=== PATIENT | female | born 1955 | race African-American/Black ===

== ENCOUNTER 2018-08-06 10:29 | Inpatient (IN) | payer MEDICAID, MEDICARE ==
[~2018-08-06] VITALS: Ht 157.5 cm; Wt 80.3 kg
[2018-08-06 10:58] LABS: GLUCOSE,POINT OF CARE 95 MG/DL (70-110)
[2018-08-06] MEDS ORDERED: METO5I IVP (11:00)
[2018-08-06] MEDS ORDERED: TORS20 PO (11:00)
[2018-08-06] MEDS ORDERED: METF-960 PO (11:00)
[2018-08-06] MEDS ORDERED: QUET25TA PO (11:00)
[2018-08-06] MEDS ORDERED: BENZ0.5T44 PO (11:00)
[2018-08-06] MEDS ORDERED: METOPROLOL TARTRATE 50 MG TABLET PO ONE (11:15)
[2018-08-06] MEDS ORDERED: LORazepam 1 MG TABLET PO ONE (11:15)
[2018-08-06 11:53] LABS: BASOPHILS % (AUTO) 0.9 % (0.0-2.0); EOSINOPHILS % (AUTO) 3.5 % (1.0-6.0); HEMATOCRIT 36.5 % (36-46); LYMPHOCYTES # (AUTO) 1.1 K/uL (1.0-4.8); LYMPHOCYTES % (AUTO) 18.2 % (22.0-44.0); MEAN CORPUSCULAR HEMOGLOBIN 27.7 pg (26.0-34.0); MEAN CORPUSCULAR HGB CONC 32.9 G/dL (31.0-37.0); MEAN CORPUSCULAR VOLUME 84 fL (80-100); MONOCYTES # (AUTO) 0.4 K/uL (0.1-1.0); MONOCYTES % (AUTO) 6.3 % (2.0-9.0); NEUTROPHILS # (AUTO) 4.2 K/uL (1.8-7.7); NEUTROPHILS % (AUTO) 71.1 % (40.0-70.0); PLATELET COUNT (AUTO) 265 K/uL (150-450); RED BLOOD CELL COUNT(AUTO) 4.34 MIL/uL (4.00-5.20); RED CELL DISTRIBUTION WIDTH 15.3 % (11.5-14.5)
[2018-08-06 12:11] LABS: ANION GAP 10 mmol/L (8-16); CALCIUM, TOTAL 9.3 mg/dL (8.8-10.5); CARBON DIOXIDE 27 mmol/L (22-29); CHLORIDE 105 mmol/L (98-107); CREATININE 1.54 mg/dL (0.60-1.30); GLOMERULAR FILTR. RATE CALC 41 mL/min (>60); GLUCOSE,RANDOM 107 mg/dL (70-110); POTASSIUM 3.6 mmol/L (3.5-5.1); SODIUM SERUM 142 mmol/L (136-145); UREA NITROGEN, BLOOD 7 mg/dL (7-18)
[2018-08-06 12:20] LABS: ALANINE AMINOTRANSFERASE 20 U/L (12-78); ALBUMIN 3.3 g/dL (3.4-5.0); ALKALINE PHOSPHATASE 98 U/L (46-116); ASPARTATE AMINOTRANSFERASE 12 U/L (15-37); BILIRUBIN,TOTAL 0.3 mg/dL (0.1-1.0); TOTAL PROTEIN, SERUM 6.9 g/dL (6.4-8.2)
[2018-08-06] MEDS ORDERED: ZOLPIDEM TARTRATE 10 MG TABLET PO PRN (12:45)
[2018-08-06] MEDS ORDERED: QUEtiapine FUMARATE 100 MG TABLET PO PRN (12:45)
[2018-08-06 13:03] LABS: AMPHET/METH SCREEN,URINE NEGATIVE (NEGATIVE); BARBITURATE SCREEN, URINE NEGATIVE (NEGATIVE); BENZODIAZEPINES SCREEN,URINE NEGATIVE (NEGATIVE); CANNABINOID SCREEN,URINE NEGATIVE (NEGATIVE); COCAINE SCREEN,URINE NEGATIVE (NEGATIVE); METHADONE SCREEN, URINE NEGATIVE (NEGATIVE); OPIATE SCREEN,URINE NEGATIVE (NEGATIVE)
[2018-08-06 13:04] LABS: PHENCYCLIDINE SCREEN,URINE NEGATIVE (NEGATIVE)
[2018-08-06 13:29] LABS: CHOL/HDL RATIO 2.5 (3.9-5.7); CHOLESTEROL 163 mg/dL (131-200); HDL CHOLESTEROL 64 mg/dL (40-60); LDL CHOL (CALC.) 82 mg/dL (0-130); TRIGLYCERIDES 83 mg/dL (15-150)
[2018-08-06 15:30] VITALS: BP 156/106
[2018-08-06] MEDS ORDERED: MAGNESIUM HYDROXIDE SUSPENSION 30 ML UDCUP PO PRN (16:00)
[2018-08-06] MEDS ORDERED: ONDANSETRON HCL 4 MG TABLET PO PRN (16:00)
[2018-08-06] MEDS ORDERED: GuaiFENesin/D-METHORPHAN [SUGAR-FREE] 200-20MG/10 ML SYRUP UDCUP PO PRN (16:00)
[2018-08-06] MEDS ORDERED: PETROLATUM,WHITE 71 GM JELLY TP PRN (16:00)
[2018-08-06] MEDS ORDERED: IBUPROFEN 400 MG TABLET PO PRN (16:00)
[2018-08-06] MEDS ORDERED: ALBUTEROL SULFATE HFA 90 MCG/PUFF 8 GM INHALER IH PRN (16:00)
[2018-08-06] MEDS ORDERED: LOPERAMIDE HCL 2 MG CAPSULE PO PRN (16:00)
[2018-08-06] MEDS ORDERED: NICOTINE 14 MG/24 HOUR PATCH TD PRN (16:00)
[2018-08-06] MEDS ORDERED: ACETAMINOPHEN 325 MG TABLET PO PRN (16:00)
[2018-08-06] MEDS ORDERED: DOCUSATE SODIUM 100 MG CAPSULE PO PRN (16:00)
[2018-08-06] MEDS ORDERED: MAG HYDROX/AL HYDROX/SIMETH ES 30 ML SUSPENSION UDCUP PO PRN (16:00)
[2018-08-06] MEDS ORDERED: CloNIDine HCL 0.1 MG TABLET PO PRN (16:00)
[2018-08-06] MEDS: MetFORMIN HCL 500 MG TABLET PO SCH (17:25)
[2018-08-06] MEDS: METOPROLOL SUCCINATE 25 MG ER TABLET PO SCH (20:21)
[2018-08-06] MEDS: LORazepam 2 MG TABLET PO PRN (20:24)
[2018-08-06 20:26] VITALS: BP 134/74
[2018-08-07 06:49] LABS: BASOPHILS % (AUTO) 1.1 % (0.0-2.0); HEMATOCRIT 35.8 % (36-46); HEMOGLOBIN 11.7 g/dL (12.0-16.0); LYMPHOCYTES # (AUTO) 1.7 K/uL (1.0-4.8); MEAN CORPUSCULAR HEMOGLOBIN 27.3 pg (26.0-34.0); MEAN CORPUSCULAR HGB CONC 32.7 G/dL (31.0-37.0); MEAN CORPUSCULAR VOLUME 84 fL (80-100); MONOCYTES # (AUTO) 0.4 K/uL (0.1-1.0); MONOCYTES % (AUTO) 7.7 % (2.0-9.0); NEUTROPHILS # (AUTO) 2.6 K/uL (1.8-7.7); NEUTROPHILS % (AUTO) 50.2 % (40.0-70.0); PLATELET COUNT (AUTO) 259 K/uL (150-450); RED BLOOD CELL COUNT(AUTO) 4.29 MIL/uL (4.00-5.20); RED CELL DISTRIBUTION WIDTH 15.1 % (11.5-14.5)
[2018-08-07] MEDS: MetFORMIN HCL 500 MG TABLET PO SCH ×2 (06:58→16:28)
[2018-08-07 07:14] LABS: HEMOGLOBIN A1C 5.9 % (4.5-6.2)
[2018-08-07 07:24] LABS: ALBUMIN 3.1 g/dL (3.4-5.0); BILIRUBIN,TOTAL 0.4 mg/dL (0.1-1.0); CALCIUM, TOTAL 8.8 mg/dL (8.8-10.5); CREATININE 1.33 mg/dL (0.60-1.30); THYROID STIMULATING HORMONE 0.92 uIU/mL (0.36-3.74); TOTAL PROTEIN, SERUM 6.1 g/dL (6.4-8.2)
[2018-08-07 08:05] VITALS: BP 145/98
[2018-08-07] MEDS: METOPROLOL SUCCINATE 25 MG ER TABLET PO SCH ×2 (09:09→16:28)
[2018-08-07] MEDS: LORazepam 2 MG TABLET PO PRN ×2 (09:10→16:31)
[2018-08-07] MEDS: TORSEMIDE 20 MG TABLET PO SCH (09:19)
[2018-08-07 19:58] VITALS: BP 117/72
[2018-08-07] MEDS: QUEtiapine FUMARATE 200 MG TABLET PO SCH (20:45)
[2018-08-07] MEDS: BENZTROPINE MESYLATE 1 MG TABLET PO SCH (20:45)
[2018-08-08] MEDS: MetFORMIN HCL 500 MG TABLET PO SCH ×2 (07:02→16:41)
[2018-08-08 08:05] VITALS: BP 131/74
[2018-08-08] MEDS: TORSEMIDE 20 MG TABLET PO SCH (08:26)
[2018-08-08] MEDS: METOPROLOL SUCCINATE 25 MG ER TABLET PO SCH ×2 (08:26→16:41)
[2018-08-08 17:34] VITALS: BP 113/88
[2018-08-08] MEDS: BENZTROPINE MESYLATE 1 MG TABLET PO SCH (20:15)
[2018-08-08] MEDS: QUEtiapine FUMARATE 200 MG TABLET PO SCH (20:15)
[2018-08-08] MEDS: LORazepam 2 MG TABLET PO PRN (20:16)
[2018-08-09] MEDS: MetFORMIN HCL 500 MG TABLET PO SCH ×2 (07:04→17:30)
[2018-08-09 08:05] VITALS: BP 146/102
[2018-08-09] MEDS: TORSEMIDE 20 MG TABLET PO SCH (09:20)
[2018-08-09] MEDS: METOPROLOL SUCCINATE 25 MG ER TABLET PO SCH ×2 (09:20→16:56)
[2018-08-09] MEDS ORDERED: METO25 PO (16:47)
[2018-08-09] MEDS: FERROUS SULFATE 325 MG EC TABLET PO SCH (17:30)
[2018-08-09] MEDS: QUEtiapine FUMARATE 200 MG TABLET PO SCH (20:03)
[2018-08-09] MEDS: BENZTROPINE MESYLATE 1 MG TABLET PO SCH (20:03)
[2018-08-09 20:09] VITALS: BP 136/84
[2018-08-10] MEDS: MetFORMIN HCL 500 MG TABLET PO SCH ×2 (07:13→16:57)
[2018-08-10] MEDS: FERROUS SULFATE 325 MG EC TABLET PO SCH ×2 (07:13→16:57)
[2018-08-10] MEDS: TORSEMIDE 20 MG TABLET PO SCH (08:50)
[2018-08-10] MEDS: ESCITALOPRAM OXALATE 10 MG TABLET PO SCH (08:51)
[2018-08-10] MEDS: METOPROLOL SUCCINATE 25 MG ER TABLET PO SCH ×2 (08:51→16:57)
[2018-08-10 09:31] VITALS: BP 113/67
[2018-08-10 17:00] VITALS: BP 154/80
[2018-08-10] MEDS: QUEtiapine FUMARATE 200 MG TABLET PO SCH (20:14)
[2018-08-10] MEDS: BENZTROPINE MESYLATE 1 MG TABLET PO SCH (20:14)
[2018-08-11 01:29] VITALS: BP 133/72
[2018-08-11] MEDS: FERROUS SULFATE 325 MG EC TABLET PO SCH ×2 (06:44→17:49)
[2018-08-11] MEDS: MetFORMIN HCL 500 MG TABLET PO SCH ×2 (06:45→17:49)
[2018-08-11] MEDS: TORSEMIDE 20 MG TABLET PO SCH (09:03)
[2018-08-11] MEDS: METOPROLOL SUCCINATE 25 MG ER TABLET PO SCH ×2 (09:03→16:46)
[2018-08-11] MEDS: ESCITALOPRAM OXALATE 10 MG TABLET PO SCH (09:04)
[2018-08-11 10:23] VITALS: BP 129/80
[2018-08-11 16:26] VITALS: BP 141/82
[2018-08-11] MEDS: BENZTROPINE MESYLATE 1 MG TABLET PO SCH (20:03)
[2018-08-11] MEDS: QUEtiapine FUMARATE 200 MG TABLET PO SCH (20:03)
[2018-08-12 05:50] VITALS: BP 146/92
[2018-08-12] MEDS: FERROUS SULFATE 325 MG EC TABLET PO SCH ×2 (07:02→17:06)
[2018-08-12] MEDS: MetFORMIN HCL 500 MG TABLET PO SCH ×2 (07:02→17:06)
[2018-08-12 08:05] VITALS: BP 120/69
[2018-08-12] MEDS: METOPROLOL SUCCINATE 25 MG ER TABLET PO SCH ×2 (08:19→17:05)
[2018-08-12] MEDS: TORSEMIDE 20 MG TABLET PO SCH (08:19)
[2018-08-12] MEDS: QUEtiapine FUMARATE 200 MG TABLET PO SCH ×2 (08:19→20:13)
[2018-08-12] MEDS: ESCITALOPRAM OXALATE 10 MG TABLET PO SCH (08:20)
[2018-08-12] MEDS ORDERED: GABAPENTIN 300 MG CAPSULE PO SCH (17:00)
[2018-08-12] MEDS ORDERED: OLANZapine 10 MG TABLET PO SCH (17:00)
[2018-08-12] MEDS: BENZTROPINE MESYLATE 1 MG TABLET PO SCH (20:12)
[2018-08-12] MEDS ORDERED: QUEtiapine FUMARATE 300 MG TABLET PO SCH (21:00)
[2018-08-12 22:13] VITALS: BP 144/74
[2018-08-13] MEDS: MetFORMIN HCL 500 MG TABLET PO SCH ×2 (06:20→17:15)
[2018-08-13] MEDS: FERROUS SULFATE 325 MG EC TABLET PO SCH ×2 (06:20→17:15)
[2018-08-13 08:05] VITALS: BP 128/67
[2018-08-13] MEDS: TORSEMIDE 20 MG TABLET PO SCH (12:07)
[2018-08-13] MEDS: QUEtiapine FUMARATE 200 MG TABLET PO SCH ×2 (12:07→20:05)
[2018-08-13] MEDS: METOPROLOL SUCCINATE 25 MG ER TABLET PO SCH ×2 (12:07→17:00)
[2018-08-13] MEDS: ESCITALOPRAM OXALATE 10 MG TABLET PO SCH (12:07)
[2018-08-13 16:09] VITALS: BP 129/89
[2018-08-13] MEDS: BENZTROPINE MESYLATE 1 MG TABLET PO SCH (20:05)
[2018-08-14] MEDS: MetFORMIN HCL 500 MG TABLET PO SCH ×2 (06:33→17:43)
[2018-08-14] MEDS: FERROUS SULFATE 325 MG EC TABLET PO SCH ×2 (06:33→17:30)
[2018-08-14 07:17] LABS: CREATININE 1.46 mg/dL (0.60-1.30); POTASSIUM 4.1 mmol/L (3.5-5.1)
[2018-08-14] MEDS: METOPROLOL SUCCINATE 25 MG ER TABLET PO SCH ×2 (08:57→09:44)
[2018-08-14] MEDS: TORSEMIDE 20 MG TABLET PO SCH (08:58)
[2018-08-14] MEDS: QUEtiapine FUMARATE 200 MG TABLET PO SCH ×2 (08:58→21:20)
[2018-08-14] MEDS: ESCITALOPRAM OXALATE 10 MG TABLET PO SCH (08:58)
[2018-08-14 10:51] VITALS: BP 166/84
[2018-08-14] MEDS: BENZTROPINE MESYLATE 1 MG TABLET PO SCH (21:20)
[2018-08-14 22:20] VITALS: BP 141/82
[2018-08-15] MEDS: FERROUS SULFATE 325 MG EC TABLET PO SCH ×2 (07:05→17:33)
[2018-08-15] MEDS: MetFORMIN HCL 500 MG TABLET PO SCH ×2 (07:05→17:34)
[2018-08-15 07:08] LABS: GLUCOMETER DEV NAME(LOC) 3E.I; GLUCOSE,POINT OF CARE 183 MG/DL (70-110)
[2018-08-15] MEDS: QUEtiapine FUMARATE 200 MG TABLET PO SCH ×2 (08:53→20:08)
[2018-08-15] MEDS: ESCITALOPRAM OXALATE 10 MG TABLET PO SCH (08:55)
[2018-08-15] MEDS: METOPROLOL SUCCINATE 25 MG ER TABLET PO SCH ×2 (08:55→17:33)
[2018-08-15] MEDS: TORSEMIDE 20 MG TABLET PO SCH (08:56)
[2018-08-15 09:00] VITALS: BP 142/85
[2018-08-15 16:39] LABS: GLUCOMETER DEV NAME(LOC) 3E.I; GLUCOSE,POINT OF CARE 93 MG/DL (70-110)
[2018-08-15 17:50] VITALS: BP 129/89
[2018-08-15] MEDS: BENZTROPINE MESYLATE 1 MG TABLET PO SCH (20:08)
[2018-08-16 05:55] LABS: GLUCOMETER DEV NAME(LOC) 3EX.; GLUCOSE,POINT OF CARE 94 MG/DL (70-110)
[2018-08-16] MEDS: FERROUS SULFATE 325 MG EC TABLET PO SCH ×3 (07:13→18:30)
[2018-08-16] MEDS: MetFORMIN HCL 500 MG TABLET PO SCH ×2 (07:13→16:48)
[2018-08-16] MEDS: QUEtiapine FUMARATE 200 MG TABLET PO SCH ×2 (08:24→20:21)
[2018-08-16] MEDS: ESCITALOPRAM OXALATE 10 MG TABLET PO SCH (08:25)
[2018-08-16] MEDS: METOPROLOL SUCCINATE 25 MG ER TABLET PO SCH ×3 (08:25→18:30)
[2018-08-16 08:30] VITALS: BP 132/73
[2018-08-16] MEDS: TORSEMIDE 20 MG TABLET PO SCH (08:43)
[2018-08-16 17:00] VITALS: BP 123/78
[2018-08-16 17:04] LABS: GLUCOMETER DEV NAME(LOC) 3E.I; GLUCOSE,POINT OF CARE 93 MG/DL (70-110)
[2018-08-16] MEDS: BENZTROPINE MESYLATE 1 MG TABLET PO SCH (20:21)
[2018-08-17 06:04] LABS: GLUCOMETER DEV NAME(LOC) 3EX.; GLUCOSE,POINT OF CARE 94 MG/DL (70-110)
[2018-08-17] MEDS: FERROUS SULFATE 325 MG EC TABLET PO SCH ×2 (06:59→16:32)
[2018-08-17] MEDS: MetFORMIN HCL 500 MG TABLET PO SCH ×2 (07:00→16:33)
[2018-08-17] MEDS: ESCITALOPRAM OXALATE 10 MG TABLET PO SCH (09:00)
[2018-08-17] MEDS: QUEtiapine FUMARATE 200 MG TABLET PO SCH ×2 (09:00→20:50)
[2018-08-17] MEDS: TORSEMIDE 20 MG TABLET PO SCH (09:00)
[2018-08-17] MEDS: METOPROLOL SUCCINATE 25 MG ER TABLET PO SCH ×2 (09:00→16:32)
[2018-08-17 10:08] VITALS: BP 154/93
[2018-08-17 16:39] LABS: GLUCOMETER DEV NAME(LOC) 3E.I; GLUCOSE,POINT OF CARE 86 MG/DL (70-110)
[2018-08-17 17:23] VITALS: BP 166/97
[2018-08-17] MEDS: BENZTROPINE MESYLATE 1 MG TABLET PO SCH (20:49)
[2018-08-18 01:40] VITALS: BP 169/102
[2018-08-18 05:39] LABS: GLUCOMETER DEV NAME(LOC) 3EX.; GLUCOSE,POINT OF CARE 84 MG/DL (70-110)
[2018-08-18] MEDS: FERROUS SULFATE 325 MG EC TABLET PO SCH ×2 (07:06→16:41)
[2018-08-18] MEDS: MetFORMIN HCL 500 MG TABLET PO SCH ×2 (07:07→16:41)
[2018-08-18] MEDS: ESCITALOPRAM OXALATE 10 MG TABLET PO SCH (08:13)
[2018-08-18] MEDS: METOPROLOL SUCCINATE 25 MG ER TABLET PO SCH ×2 (08:13→16:41)
[2018-08-18] MEDS: QUEtiapine FUMARATE 200 MG TABLET PO SCH ×2 (08:14→21:00)
[2018-08-18] MEDS: TORSEMIDE 20 MG TABLET PO SCH (08:19)
[2018-08-18 09:41] VITALS: BP 147/94
[2018-08-18 16:36] VITALS: BP 131/77
[2018-08-18] MEDS: BENZTROPINE MESYLATE 1 MG TABLET PO SCH (21:00)
[2018-08-19 05:30] LABS: GLUCOMETER DEV NAME(LOC) 3EX.; GLUCOSE,POINT OF CARE 96 MG/DL (70-110)
[2018-08-19] MEDS: FERROUS SULFATE 325 MG EC TABLET PO SCH ×2 (06:58→17:43)
[2018-08-19] MEDS: MetFORMIN HCL 500 MG TABLET PO SCH (06:58)
[2018-08-19 08:08] VITALS: BP 168/109
[2018-08-19] MEDS: ESCITALOPRAM OXALATE 10 MG TABLET PO SCH (09:00)
[2018-08-19] MEDS: QUEtiapine FUMARATE 200 MG TABLET PO SCH ×2 (09:00→20:23)
[2018-08-19] MEDS: METOPROLOL SUCCINATE 25 MG ER TABLET PO SCH ×2 (09:00→17:00)
[2018-08-19] MEDS: TORSEMIDE 20 MG TABLET PO SCH (09:00)
[2018-08-19 16:39] LABS: GLUCOMETER DEV NAME(LOC) 3E.I; GLUCOSE,POINT OF CARE 109 MG/DL (70-110)
[2018-08-19 18:12] VITALS: BP 159/93
[2018-08-19] MEDS: BENZTROPINE MESYLATE 1 MG TABLET PO SCH (20:16)
[2018-08-20 06:04] LABS: GLUCOMETER DEV NAME(LOC) 3EX.; GLUCOSE,POINT OF CARE 96 MG/DL (70-110)
[2018-08-20] MEDS: MetFORMIN HCL 500 MG TABLET PO SCH (06:56)
[2018-08-20] MEDS: FERROUS SULFATE 325 MG EC TABLET PO SCH ×2 (06:56→17:25)
[2018-08-20] MEDS: METOPROLOL SUCCINATE 25 MG ER TABLET PO SCH ×2 (09:00→17:00)
[2018-08-20] MEDS: TORSEMIDE 20 MG TABLET PO SCH (09:00)
[2018-08-20] MEDS: ESCITALOPRAM OXALATE 10 MG TABLET PO SCH (09:00)
[2018-08-20] MEDS: QUEtiapine FUMARATE 200 MG TABLET PO SCH ×2 (09:00→20:31)
[2018-08-20 10:19] VITALS: BP 146/91
[2018-08-20 10:29] VITALS: BP 133/83
[2018-08-20 19:26] VITALS: BP 137/81
[2018-08-20] MEDS: BENZTROPINE MESYLATE 1 MG TABLET PO SCH (20:30)
[2018-08-21] MEDS: FERROUS SULFATE 325 MG EC TABLET PO SCH (07:00)
[2018-08-21] MEDS: MetFORMIN HCL 500 MG TABLET PO SCH (07:00)
[2018-08-21] MEDS: ESCITALOPRAM OXALATE 10 MG TABLET PO SCH ×2 (08:27→09:00)
[2018-08-21] MEDS: TORSEMIDE 20 MG TABLET PO SCH ×2 (08:31→09:00)
[2018-08-21] MEDS: QUEtiapine FUMARATE 200 MG TABLET PO SCH ×2 (08:32→09:00)
[2018-08-21] MEDS: METOPROLOL SUCCINATE 25 MG ER TABLET PO SCH (09:00)
== END 2018-08-21 13:10 | disposition home or self-care (01) | DRG 885 ==
LOC: EMS 10:29 → 3EX 13:50
DX: F25.1 Schizoaffective disorder, depressive type (principal); N18.9 Chronic kidney disease, unspecified; I13.0 Hypertensive heart and chronic kidney disease with heart failure and stage 1 through stage 4 chronic kidney disease, or unspecified chronic kidney disease; D64.9 Anemia, unspecified; E11.22 Type 2 diabetes mellitus with diabetic chronic kidney disease; I50.9 Heart failure, unspecified; Z88.6 Allergy status to analgesic agent; Z88.8 Allergy status to other drugs, medicaments and biological substances
CPT/HCPCS: 83036; 84443; 93005; G0378; G0480

== ENCOUNTER → 2020-04-06 | Outpatient (CLI) | payer MEDICARE, OTHER ==
[~2020-04-06] MED LIST: ATEN-73 PO; BENZ0.5T44 PO; DYRE50 PO; METF-960 PO; METO25 PO; OLAN10TA3 PO; POTA20TA83 PO; QUET25TA PO; TORS20 PO
== END | disposition home or self-care (01) ==
LOC: RADPV 13:38
PROVIDERS: ATTEND Internal Medicine Geriatric Medicine
DX: E04.9 Nontoxic goiter, unspecified (principal); C73 Malignant neoplasm of thyroid gland; R59.0 Localized enlarged lymph nodes
CPT/HCPCS: 76536

== ENCOUNTER 2020-04-07 09:33 | Emergency (ER) | payer MEDICARE, MEDICAID ==
[~2020-04-07] VITALS: Ht 157.5 cm; Wt 92.7 kg
[~2020-04-07 09:33] MED LIST changes: -ATEN-73 PO; -DYRE50 PO; -OLAN10TA3 PO; -POTA20TA83 PO
[2020-04-07] MEDS ORDERED: ATEN-73 PO (09:49)
[2020-04-07] MEDS ORDERED: DYRE50 PO (09:53)
[2020-04-07] MEDS ORDERED: OLAN10TA3 PO (09:53)
[2020-04-07] MEDS ORDERED: POTA20TA83 PO (09:53)
[2020-04-07 11:01] LABS: BASOPHILS % (AUTO) 1.1 % (0.0-2.0); EOSINOPHILS % (AUTO) 4.2 % (1.0-6.0); HEMATOCRIT 41.5 % (36-46); HEMOGLOBIN 14.4 g/dL (12.0-16.0); LYMPHOCYTES # (AUTO) 1.1 K/uL (1.0-4.8); LYMPHOCYTES % (AUTO) 15.9 % (22.0-44.0); MEAN CORPUSCULAR HEMOGLOBIN 29.9 pg (26.0-34.0); MEAN CORPUSCULAR HGB CONC 34.7 G/dL (31.0-37.0); MEAN CORPUSCULAR VOLUME 86 fL (80-100); MONOCYTES # (AUTO) 0.4 K/uL (0.1-1.0); NEUTROPHILS # (AUTO) 4.9 K/uL (1.8-7.7); NEUTROPHILS % (AUTO) 72.8 % (40.0-70.0); PLATELET COUNT (AUTO) 258 K/uL (150-450); RED BLOOD CELL COUNT(AUTO) 4.82 MIL/uL (4.00-5.20); RED CELL DISTRIBUTION WIDTH 14.4 % (11.5-14.5)
[2020-04-07 11:11] LABS: CALCIUM, TOTAL 9.7 mg/dL (8.8-10.5); CREATININE 1.65 mg/dL (0.60-1.30); POTASSIUM 3.8 mmol/L (3.5-5.1)
[2020-04-07 11:18] LABS: ALBUMIN 3.8 g/dL (3.4-5.0); BILIRUBIN,TOTAL 0.3 mg/dL (0.1-1.0); TOTAL PROTEIN, SERUM 7.9 g/dL (6.4-8.2)
[2020-04-07 13:25] LABS: INFLUENZA TYPE A NEGATIVE FOR TYPE A (NEGATIVE); INFLUENZA TYPE B NEGATIVE FOR TYPE B (NEGATIVE); RAPID GROUP A STREP NEGATIVE (NEGATIVE)
[2020-04-07 14:59] LABS: APPEARANCE,URINE CLEAR (CLEAR); BILIRUBIN,URINE NEGATIVE (NEGATIVE); GLUCOSE, URINE (UA) NEGATIVE (NEGATIVE); KETONES,URINE NEGATIVE (NEGATIVE); LEUKOCYTE ESTERASE ,URINE NEGATIVE (NEGATIVE); NITRATE,URINE NEGATIVE (NEGATIVE); OCCULT BLOOD,URINE NEGATIVE (NEGATIVE); PH,URINE 7.5 (5.0-8.0); PROTEIN,URINE NEGATIVE (NEGATIVE); UROBILINOGEN,URINE 0.2 mg/dL (<=1.0)
[2020-04-07 15:08] LABS: BACTERIA,URINE None Seen /HPF (None Seen); RBC,URINE None Seen /HPF (0-2); SQUAMOUS EPITHELIAL CELL,UR Rare /LPF (None Seen); WBC,URINE None Seen /HPF (0-5)
[2020-04-07 15:45] VITALS: BP 141/79
== END 2020-04-07 16:17 | disposition home or self-care (01) ==
LOC: EMS 09:35
DX: C73 Malignant neoplasm of thyroid gland (principal); J02.9 Acute pharyngitis, unspecified; R51 Headache; R53.81 Other malaise; I10 Essential (primary) hypertension; Z20.828 Contact with and (suspected) exposure to other viral communicable diseases; Z90.710 Acquired absence of both cervix and uterus
CPT/HCPCS: 70450; 83605; 87426; 87430; 87804; 36415-L1; 36415-TC; 71045-TC

== ENCOUNTER 2020-04-11 16:36 | Emergency (ER) | payer MEDICARE, MEDICAID ==
[~2020-04-11] VITALS: Ht 157.5 cm; Wt 81.8 kg
[~2020-04-11 16:36] MED LIST changes: +ATEN-73 PO; -BENZ0.5T44 PO; +DYRE50 PO; -METF-960 PO; -METO25 PO; +OLAN10TA3 PO; +POTA20TA83 PO; -QUET25TA PO; -TORS20 PO
[2020-04-11 18:49] VITALS: BP 124/78
== END 2020-04-11 19:00 | disposition home or self-care (01) ==
LOC: EMS 16:37
DX: B34.9 Viral infection, unspecified (principal); Z20.828 Contact with and (suspected) exposure to other viral communicable diseases
CPT/HCPCS: 71045; 99284; U0003

== ENCOUNTER 2020-12-03 13:27 | Inpatient (IN) | payer MEDICARE, MEDICAID ==
[~2020-12-03] VITALS: Ht 157.5 cm; Wt 94.4 kg
[~2020-12-03 13:27] MED LIST changes: -ATEN-73 PO; +CITA-144 PO; +DOCU-275 PO; -DYRE50 PO; +FAMO20 PO; +LORA-1000 PO; +METO25 PO; -OLAN10TA3 PO; +QUET200T PO; +TRIA1TAB93 PO
[2020-12-03] MEDS ORDERED: LORazepam 2 MG TABLET PO PRN (20:15)
[2020-12-03] MEDS ORDERED: ZOLPIDEM TARTRATE 10 MG TABLET PO PRN (20:15)
[2020-12-03] MEDS ORDERED: HALOPERIDOL 5 MG TABLET PO PRN (20:15)
[2020-12-03 20:28] VITALS: BP 141/93
[2020-12-03] MEDS: QUEtiapine FUMARATE 200 MG TABLET PO SCH (21:11)
[2020-12-04] MEDS ORDERED: IBUPROFEN 400 MG TABLET PO PRN (07:45)
[2020-12-04] MEDS ORDERED: CloNIDine HCL 0.1 MG TABLET PO PRN (07:45)
[2020-12-04] MEDS ORDERED: DOCUSATE SODIUM 100 MG CAPSULE PO PRN (07:45)
[2020-12-04] MEDS ORDERED: MAGNESIUM HYDROXIDE SUSPENSION 30 ML UDCUP PO PRN (07:45)
[2020-12-04] MEDS ORDERED: ACETAMINOPHEN 325 MG TABLET PO PRN (07:45)
[2020-12-04] MEDS ORDERED: MAG HYDROX/AL HYDROX/SIMETH ES 30 ML SUSPENSION UDCUP PO PRN (07:45)
[2020-12-04] MEDS ORDERED: ALBUTEROL SULFATE HFA 90 MCG/PUFF 8 GM INHALER IH PRN (07:45)
[2020-12-04] MEDS ORDERED: PETROLATUM,WHITE 28 GM JELLY TP PRN (07:45)
[2020-12-04] MEDS ORDERED: NICOTINE 14 MG/24 HOUR PATCH TD PRN (07:45)
[2020-12-04] MEDS ORDERED: ONDANSETRON HCL 4 MG TABLET PO PRN (07:45)
[2020-12-04] MEDS ORDERED: LOPERAMIDE HCL 2 MG CAPSULE PO PRN (07:45)
[2020-12-04] MEDS ORDERED: GuaiFENesin/D-METHORPHAN [SUGAR-FREE] 200-20MG/10 ML SYRUP UDCUP PO PRN (07:45)
[2020-12-04] MEDS: POTASSIUM CHLORIDE 20 MEQ ER TABLET PO SCH (08:14)
[2020-12-04 08:20] VITALS: BP 160/96
[2020-12-04] MEDS: FAMOTIDINE 20 MG TABLET PO SCH (08:25)
[2020-12-04] MEDS: DOCUSATE SODIUM 100 MG CAPSULE PO SCH (08:25)
[2020-12-04] MEDS: CITALOPRAM HYDROBROMIDE 20 MG TABLET PO SCH (08:25)
[2020-12-04] MEDS: METOPROLOL TARTRATE 25 MG TABLET PO SCH ×3 (08:25→16:41)
[2020-12-04] MEDS: TRIAMTERENE/HCTZ 37.5-25 MG CAPSULE PO SCH (09:00)
[2020-12-04 16:59] VITALS: BP 161/86
[2020-12-04] MEDS: QUEtiapine FUMARATE 200 MG TABLET PO SCH (21:00)
[2020-12-05 08:41] VITALS: BP 167/100
[2020-12-05] MEDS: FAMOTIDINE 20 MG TABLET PO SCH (09:00)
[2020-12-05] MEDS: TRIAMTERENE/HCTZ 37.5-25 MG CAPSULE PO SCH (09:00)
[2020-12-05] MEDS: METOPROLOL TARTRATE 25 MG TABLET PO SCH ×2 (09:00→17:00)
[2020-12-05] MEDS: DOCUSATE SODIUM 100 MG CAPSULE PO SCH (09:00)
[2020-12-05] MEDS: CITALOPRAM HYDROBROMIDE 20 MG TABLET PO SCH (09:00)
[2020-12-05] MEDS: POTASSIUM CHLORIDE 20 MEQ ER TABLET PO SCH (09:00)
[2020-12-05 16:38] VITALS: BP 165/100
[2020-12-05] MEDS: QUEtiapine FUMARATE 200 MG TABLET PO SCH (21:00)
[2020-12-06 00:19] VITALS: BP 155/84
[2020-12-06 08:10] VITALS: BP 135/108
[2020-12-06] MEDS: POTASSIUM CHLORIDE 20 MEQ ER TABLET PO SCH (09:00)
[2020-12-06] MEDS: METOPROLOL TARTRATE 25 MG TABLET PO SCH ×2 (09:00→16:12)
[2020-12-06] MEDS: DOCUSATE SODIUM 100 MG CAPSULE PO SCH (09:00)
[2020-12-06] MEDS: CITALOPRAM HYDROBROMIDE 20 MG TABLET PO SCH (09:00)
[2020-12-06] MEDS: TRIAMTERENE/HCTZ 37.5-25 MG CAPSULE PO SCH (09:00)
[2020-12-06] MEDS: FAMOTIDINE 20 MG TABLET PO SCH (09:00)
[2020-12-06 16:00] VITALS: BP 166/89
[2020-12-06] MEDS: QUEtiapine FUMARATE 200 MG TABLET PO SCH (19:58)
[2020-12-07 08:21] VITALS: BP 151/81
[2020-12-07] MEDS: CITALOPRAM HYDROBROMIDE 20 MG TABLET PO SCH (09:00)
[2020-12-07] MEDS: DOCUSATE SODIUM 100 MG CAPSULE PO SCH (09:00)
[2020-12-07] MEDS: POTASSIUM CHLORIDE 20 MEQ ER TABLET PO SCH (09:00)
[2020-12-07] MEDS: FAMOTIDINE 20 MG TABLET PO SCH (09:00)
[2020-12-07] MEDS: METOPROLOL TARTRATE 25 MG TABLET PO SCH ×2 (09:00→17:00)
[2020-12-07] MEDS: TRIAMTERENE/HCTZ 37.5-25 MG CAPSULE PO SCH (09:00)
[2020-12-07 16:00] VITALS: BP 149/89
[2020-12-07] MEDS: QUEtiapine FUMARATE 200 MG TABLET PO SCH (21:00)
[2020-12-08] MEDS: METOPROLOL TARTRATE 25 MG TABLET PO SCH ×2 (07:36→16:45)
[2020-12-08] MEDS: POTASSIUM CHLORIDE 20 MEQ ER TABLET PO SCH (07:37)
[2020-12-08] MEDS: CITALOPRAM HYDROBROMIDE 20 MG TABLET PO SCH ×2 (07:37→12:27)
[2020-12-08] MEDS: DOCUSATE SODIUM 100 MG CAPSULE PO SCH ×3 (07:37→12:36)
[2020-12-08] MEDS: TRIAMTERENE/HCTZ 37.5-25 MG CAPSULE PO SCH ×3 (07:38→12:36)
[2020-12-08] MEDS: FAMOTIDINE 20 MG TABLET PO SCH (07:39)
[2020-12-08 08:51] VITALS: BP 197/102
[2020-12-08 16:44] VITALS: BP 143/82
[2020-12-08] MEDS: QUEtiapine FUMARATE 200 MG TABLET PO SCH (20:10)
[2020-12-09 08:30] VITALS: BP 131/87
[2020-12-09 08:37] LABS: COVID AG,FIA SOURCE NASOPHARYNGEAL
[2020-12-09] MEDS: POTASSIUM CHLORIDE 20 MEQ ER TABLET PO SCH (09:33)
[2020-12-09] MEDS: FAMOTIDINE 20 MG TABLET PO SCH (09:33)
[2020-12-09] MEDS: METOPROLOL TARTRATE 25 MG TABLET PO SCH ×2 (09:33→16:30)
[2020-12-09] MEDS: CITALOPRAM HYDROBROMIDE 20 MG TABLET PO SCH (09:33)
[2020-12-09 16:00] VITALS: BP 160/94
[2020-12-09] MEDS: QUEtiapine FUMARATE 200 MG TABLET PO SCH (20:07)
[2020-12-10] MEDS: DOCUSATE SODIUM 100 MG CAPSULE PO SCH (09:00)
[2020-12-10] MEDS: CITALOPRAM HYDROBROMIDE 20 MG TABLET PO SCH (09:00)
[2020-12-10] MEDS: TRIAMTERENE/HCTZ 37.5-25 MG CAPSULE PO SCH (09:00)
[2020-12-10] MEDS: FAMOTIDINE 20 MG TABLET PO SCH (09:00)
[2020-12-10] MEDS: POTASSIUM CHLORIDE 20 MEQ ER TABLET PO SCH (09:00)
[2020-12-10] MEDS: METOPROLOL TARTRATE 25 MG TABLET PO SCH ×2 (09:00→16:20)
[2020-12-10] MEDS: QUEtiapine FUMARATE 200 MG TABLET PO SCH (21:08)
[2020-12-11] MEDS: METOPROLOL TARTRATE 25 MG TABLET PO SCH ×3 (08:26→17:45)
[2020-12-11] MEDS: CITALOPRAM HYDROBROMIDE 20 MG TABLET PO SCH (08:27)
[2020-12-11 20:00] VITALS: BP 151/68
[2020-12-11] MEDS: QUEtiapine FUMARATE 200 MG TABLET PO SCH (21:04)
[2020-12-12] MEDS: CITALOPRAM HYDROBROMIDE 20 MG TABLET PO SCH ×2 (08:09→09:00)
[2020-12-12] MEDS: METOPROLOL TARTRATE 50 MG TABLET PO SCH ×2 (08:11→16:04)
[2020-12-12] MEDS: HALOPERIDOL 5 MG TABLET PO SCH ×2 (09:45→16:04)
[2020-12-12] MEDS: QUEtiapine FUMARATE 200 MG TABLET PO SCH (20:13)
[2020-12-13] MEDS: HALOPERIDOL 5 MG TABLET PO SCH ×3 (09:00→17:00)
[2020-12-13] MEDS: METOPROLOL TARTRATE 50 MG TABLET PO SCH ×3 (10:55→20:03)
[2020-12-13] MEDS: CITALOPRAM HYDROBROMIDE 20 MG TABLET PO SCH (10:56)
[2020-12-13] MEDS: QUEtiapine FUMARATE 200 MG TABLET PO SCH ×2 (20:04→21:39)
[2020-12-14] MEDS: HALOPERIDOL 5 MG TABLET PO SCH ×2 (09:00→16:35)
[2020-12-14] MEDS: CITALOPRAM HYDROBROMIDE 20 MG TABLET PO SCH (09:18)
[2020-12-14] MEDS: METOPROLOL TARTRATE 50 MG TABLET PO SCH ×2 (09:18→16:30)
[2020-12-14 16:20] VITALS: BP 134/83
[2020-12-14] MEDS: QUEtiapine FUMARATE 200 MG TABLET PO SCH (20:24)
[2020-12-15 06:50] VITALS: BP 132/79
[2020-12-15 08:28] VITALS: BP 125/52
[2020-12-15] MEDS: HALOPERIDOL 5 MG TABLET PO SCH ×2 (09:00→16:45)
[2020-12-15] MEDS: CITALOPRAM HYDROBROMIDE 20 MG TABLET PO SCH (09:00)
[2020-12-15] MEDS: METOPROLOL TARTRATE 50 MG TABLET PO SCH ×2 (09:00→17:00)
[2020-12-15 16:29] VITALS: BP 151/94
[2020-12-15] MEDS: QUEtiapine FUMARATE 200 MG TABLET PO SCH (21:54)
[2020-12-16 00:13] VITALS: BP 98/66
[2020-12-16] MEDS: CITALOPRAM HYDROBROMIDE 20 MG TABLET PO SCH (09:00)
[2020-12-16] MEDS: METOPROLOL TARTRATE 50 MG TABLET PO SCH ×2 (09:00→16:44)
[2020-12-16] MEDS: QUEtiapine FUMARATE 200 MG TABLET PO SCH (20:40)
[2020-12-17 00:40] VITALS: BP 158/90
[2020-12-17 08:05] VITALS: BP 109/66
[2020-12-17] MEDS: CITALOPRAM HYDROBROMIDE 20 MG TABLET PO SCH (08:46)
[2020-12-17] MEDS: METOPROLOL TARTRATE 50 MG TABLET PO SCH (08:46)
== END 2020-12-17 15:10 | disposition left against medical advice (07) | DRG 885 ==
LOC: 3EX 19:00
PROVIDERS: ADMIT Psychiatry & Neurology Child & Adolescent Psychiatry; ATTEND Psychiatry & Neurology Child & Adolescent Psychiatry
DX: F25.1 Schizoaffective disorder, depressive type (principal); N18.32 Chronic kidney disease, stage 3b; Z20.822 Contact with and (suspected) exposure to COVID-19; I12.9 Hypertensive chronic kidney disease with stage 1 through stage 4 chronic kidney disease, or unspecified chronic kidney disease; Z80.0 Family history of malignant neoplasm of digestive organs; Z82.49 Family history of ischemic heart disease and other diseases of the circulatory system; Z90.710 Acquired absence of both cervix and uterus; Z91.19 Patient's noncompliance with other medical treatment and regimen; Z87.891 Personal history of nicotine dependence; E04.2 Nontoxic multinodular goiter; Z59.0 Homelessness; F22 Delusional disorders
CPT/HCPCS: 87081; 87426; G0378; Z7610

== ENCOUNTER 2021-01-30 22:20 | Emergency (ER) | payer MEDICARE, MEDICAID ==
[~2021-01-30] VITALS: Ht 157.5 cm; Wt 72.7 kg
[~2021-01-30 22:20] MED LIST changes: -DOCU-275 PO; -FAMO20 PO; -LORA-1000 PO; -POTA20TA83 PO; -TRIA1TAB93 PO
[2021-01-30 22:30] VITALS: BP 156/83
== END 2021-01-31 00:04 | disposition left against medical advice (07) ==
LOC: EMS 23:12
DX: M54.5 Low back pain (principal); Z53.21 Procedure and treatment not carried out due to patient leaving prior to being seen by health care provider

== ENCOUNTER 2025-03-21 16:47 | Emergency (ER) | payer MEDICARE, MEDICAID ==
[~2025-03-21] VITALS: Ht 157.5 cm; Wt 81.8 kg
[2025-03-21 16:54] VITALS: BP 154/92; PULSE 97; RESP 18; TEMP 98.1; O2SAT 98
[2025-03-21 17:12] LABS: PLATELET COUNT (AUTO) 240 K/uL (150-450); RED BLOOD CELL COUNT(AUTO) 5.19 MIL/uL (4.00-5.20); RED CELL DISTRIBUTION WIDTH 15.3 % (11.5-14.5); WHITE BLOOD COUNT (AUTO) 5.5 K/uL (4.5-11.0)
[2025-03-21 17:21] LABS: CALCIUM, TOTAL 8.5 mg/dL (8.8-10.5); CREATININE 1.42 mg/dL (0.60-1.30); GLOMERULAR FILTR. RATE CALC 45 mL/min (>60); GLUCOSE,RANDOM 114 mg/dL (70-110); SODIUM SERUM 135 mmol/L (136-145); UREA NITROGEN, BLOOD 10 mg/dL (7-18)
[2025-03-21 17:29] LABS: TROPONIN I-HIGH SENSITIVITY Less Than 4 ng/L (<51)
== END 2025-03-21 20:31 | disposition left against medical advice (07) ==
LOC: EMS 16:47
DX: M79.89 Other specified soft tissue disorders (principal); Z53.21 Procedure and treatment not carried out due to patient leaving prior to being seen by health care provider
CPT/HCPCS: 80048; 83880; 84484; 85025; 93005